=== PATIENT | female | born 1955 | race Caucasian/White ===

== ENCOUNTER 2017-03-05 08:21 | Day surgery (SDC) | payer OTHER ==
[~2017-03-05 08:21] MED LIST: Lactated Ringers 1,000 ML IV SCH
[2017-03-05] MEDS ORDERED: Propofol 200 MG/20 ML SDV IV ONE (11:00)
[2017-03-05] MEDS ORDERED: Simethicone Drops 40 MG/0.6 ML 30 ML Bottle ONE (11:18)
--- NOTE | 2017-03-05 11:30 | PCM.OPNOTE ---
- General Post-Op/Procedure Note Date of Surgery/Procedure: 03/05/17 Operative Procedure(s): c scope Findings: normal colon Pre Op Diagnosis: screening Post-Op Diagnosis: nl scope Anesthesia Technique: MAC (s) Primary Surgeon: Brett Garcia Anesthesia Provider: Angel Alvarado Complications: None Condition: Good Free Text/Narrative:: see dictation
--- NOTE | 2017-03-05 12:24 | OR ---
DATE OF OPERATION: 03/05/2017 SURGEON: Brett Garcia MD PROCEDURE PERFORMED: Colonoscopy. PREOPERATIVE DIAGNOSIS: Screening colonoscopy. POSTOPERATIVE DIAGNOSIS: Normal scope. INDICATIONS FOR PROCEDURE: This is a 61-year-old white female, who presents for screening colonoscopy. She was offered and accepted same. DESCRIPTION OF PROCEDURE: After an excellent IV sedation was administered, digital rectal exam was performed. No marked abnormality was noted. Flexible colonoscope was inserted advanced without difficulty to the cecum. The prep was excellent. The following findings were noted. Ascending colon, unremarkable. Transverse colon, unremarkable. Descending colon, unremarkable. Sigmoid and rectum unremarkable. Colon was deflated, scope was removed. The patient tolerated the procedure well. RECOMMENDATIONS: Repeat scope in 10 years. /[id number] /MODL
[2017-03-05 13:01] VITALS: BP 136/86
== END 2017-03-05 12:23 | disposition home or self-care (01) ==
LOC: FB.SDS 08:21
PROVIDERS: ATTEND Surgery
DX: Z12.11 Encounter for screening for malignant neoplasm of colon (principal); E78.5 Hyperlipidemia, unspecified; Z79.82 Long term (current) use of aspirin; Z79.899 Other long term (current) drug therapy; Z98.890 Other specified postprocedural states
CPT/HCPCS: 45378; A9270; J2704; J7120

== ENCOUNTER 2021-04-01 20:21 | Emergency (ER) | payer MEDICARE, OTHER ==
--- NOTE | 2021-04-01 21:06 | EDM.PDOC ---
ED HPI GENERAL MEDICAL PROBLEM - General Stated Complaint: FELL/BACK PAIN-RIB Time Seen by Provider: 04/01/21 20:35 Source of Information: Reports: Patient, Family History Limitations: Reports: No Limitations - History of Present Illness INITIAL COMMENTS - FREE TEXT/NARRATIVE: Patient presented to the ED because of right rib pain. 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 She was moving an ottoman and lost her balance. She fell and hit her rt rib against the ottoman. She c/o 7/10 pain that is worse with breathing and movements. Right Rib Pain Score (Numeric/FACES): 6 - Related Data Allergies Allergy/AdvReac Type Severity Reaction Status Date / Time No Known Allergies Allergy Verified 03/04/17 09:41 Home Meds: Home Meds Aspirin [Low Dose Aspirin EC] 81 mg PO DAILY 03/05/17 [History] Calcium Carb/Vitamin D3/Vit K1 [Viactiv Soft Chew] 1 each PO DAILY 03/05/17 [History] atorvaSTATin [Lipitor] 10 mg PO BEDTIME 03/05/17 [History] traMADol [Ultram] 100 mg PO Q8H PRN #15 tab 04/01/21 [Rx] Past Medical History HEENT History: Reports: Impaired Vision Cardiovascular History: Reports: High Cholesterol Respiratory History: Reports: None Gastrointestinal History: Reports: None Genitourinary History: Reports: None [employer] History: Reports: Musculoskeletal History: Reports: Fracture Neurological History: Reports: None Psychiatric History: Reports: None Endocrine/Metabolic History: Reports: None Hematologic History: Reports: None Immunologic History: Reports: None Oncologic (Cancer) History: Reports: None Dermatologic History: Reports: None - Past Surgical History Head Surgeries/Procedures: Reports: None HEENT Surgical History: Reports: None Cardiovascular Surgical History: Reports: None Respiratory Surgical History: Reports: None GI Surgical History: Reports: None Female Surgical History: Reports: Section Endocrine Surgical History: Reports: None Neurological Surgical History: Reports: None Musculoskeletal Surgical History: Reports: None Oncologic Surgical History: Reports: None Social & Family History - Caffeine Use Caffeine Use: Reports: Coffee ED ROS GENERAL - Review of Systems Review Of Systems: See Below Constitutional: Reports: No Symptoms HEENT: Reports: No Symptoms Respiratory: Reports: No Symptoms Cardiovascular: Reports: No Symptoms Endocrine: Reports: No Symptoms GI/Abdominal: Reports: No Symptoms : Reports: No Symptoms Musculoskeletal: Reports: Other (Rt rib pain) Skin: Reports: No Symptoms Neurological: Reports: No Symptoms Psychiatric: Reports: No Symptoms ED EXAM, GENERAL - Physical Exam Exam: See Below Exam Limited By: No Limitations General Appearance: Alert, No Apparent Distress Ears: Normal External Exam, Normal Canal Nose: Normal Inspection, Normal Mucosa, No Blood Throat/Mouth: Normal Inspection, Normal Lips, Normal Teeth, Normal Gums Head: Atraumatic, Normocephalic Neck: Normal Inspection, Supple, Non-Tender, Full Range of Motion Respiratory/Chest: No Respiratory Distress, Lungs Clear, Normal Breath Sounds Cardiovascular: Normal Peripheral Pulses, Regular Rate, Rhythm, No Edema, No Gallop, No JVD, No Murmur, No Rub, Other (tednernes rit rib) GI/Abdominal: Normal Bowel Sounds, Soft, Non-Tender, No Organomegaly Back Exam: Normal Inspection, Full Range of Motion Extremities: Normal Inspection, Normal Range of Motion, Non-Tender, No Pedal Edema, Normal Capillary Refill Neurological: Alert, Oriented, CN II-XII Intact, Normal Cognition, Normal Gait, Normal Reflexes Course - Vital Signs Text/Narrative:: Chest xray and rib xay result was reviewed and discussed with patient Marston 5 mg 2 PO x1 Last Recorded V/S: Last Vital Signs Temp 35.6 C L 04/01/21 20:30 Pulse 62 04/01/21 21:30 Resp 18 04/01/21 21:30 BP 128/74 04/01/21 21:30 Pulse Ox 98 04/01/21 21:30 - Orders/Labs/Meds Meds: Medications Discontinued Medications Generic Name Dose Route Start Last Admin Trade Name Freq PRN Reason Stop Dose Admin Hydrocodone Bitart/Acetaminophen 2 tab 04/01/21 21:22 04/01/21 21:25 Acetaminophen/Hydrocodone 325-5 Mg Tab PO 04/01/21 21:23 2 tab NOW STA Administration Departure - Departure Time of Disposition: 21:30 Disposition: Home, Self-Care 01 Condition: Good Clinical Impression: Rib contusion - Discharge Information Prescriptions: traMADol [Ultram] 100 mg PO Q8H PRN #15 tab PRN Reason: Pain Instructions: Rib Contusion, Rib Fracture, [id number] Referrals: Klarissa Garcia NP [Primary Care Provider] - Forms: ED Department Discharge Additional Instructions: Please read discharge instructions on rib contusion and fracture Take tramadol 100 mg with 1000 mg ever 8 hours as needed for pain Follow up as needed
[2021-04-01] MEDS ORDERED: Acetaminophen/HYDROcodone 325-5 MG Tab PO STA (21:22)
[2021-04-02 00:37] VITALS: BP 128/74; PULSE 62
--- NOTE | 2021-04-02 10:32 | CR ---
INDICATION: Fall with right rib pain - posterior right rib pain. RIGHT RIBS WITH CHEST: An AP supine view of the chest with four additional views of the right ribs were obtained 04/01/21 - no comparisons. The heart appears prominent but is emphasized by supine AP positioning and may be at the upper limits of normal in size or normal. The aorta is somewhat tortuous. An active infiltrate, effusion, contusion, or pneumothorax was not identified. A BB was placed overlying the area of pain - trauma. There are undisplaced fractures mostly obliquely through the eighth, ninth, tenth, and eleventh ribs posteriorly. No other acute abnormality was suggested. IMPRESSION: Right rib fractures eight, nine, ten, and eleven posteriorly in the area of tenderness. MTDD
== END 2021-04-01 21:35 | disposition home or self-care (01) ==
LOC: FB.ED 20:21
DX: S20.211A Contusion of right front wall of thorax, initial encounter (principal); E78.00 Pure hypercholesterolemia, unspecified; Z79.82 Long term (current) use of aspirin; Z79.899 Other long term (current) drug therapy; W01.198A Fall on same level from slipping, tripping and stumbling with subsequent striking against other object, initial encounter
CPT/HCPCS: 71101; 99283; A9270